=== PATIENT | male | born 1990 | race African-American/Black ===

== ENCOUNTER 2016-04-22 22:08 | Outpatient (CLI) | payer OTHER, BC | END 2016-04-22 22:09 | disposition home or self-care (01) | DX: Z01.89 Encounter for other specified special examinations (principal) ==

== ENCOUNTER 2019-02-02 16:32 | Emergency (ER) | payer BC ==
[2019-02-02] MEDS ORDERED: BUPIVACAINE 0.5% PF 10 ML VIAL SUBQ STA (18:10)
[2019-02-02] MEDS ORDERED: BUFFERED LIDOCAINE 10 ML SYRINGE SUBQ STA (18:10)
[2019-02-02] MEDS ORDERED: TETANUS/DIPHTHERIA/PERTUSSIS 0.5 ML SYRINGE IM ONE (18:10)
--- NOTE | 2019-02-02 18:11 | ED Physician Documentation ---
PD HPI UPPER EXT INJURY - Stated complaint Stated Complaint: RT RING FINGER INJURY - Chief complaint Chief Complaint: Ext Problem - History obtained from History obtained from: Patient (This is a right-handed gentleman with unknown tetanus status who got his finger caught while closing the garage door earlier today at home. He has a laceration on the right 4th finger with moderate pain. No other injuries.) Review of Systems Constitutional: reports: Reviewed and negative Cardiac: reports: Reviewed and negative Respiratory: reports: Reviewed and negative PD PAST MEDICAL HISTORY - Past Medical History Past Medical History: No Cardiovascular: None Respiratory: Asthma Neuro: None Endocrine/Autoimmune: None GI: None : None HEENT: None Psych: None Musculoskeletal: Chronic back pain Derm: None - Past Surgical History Past Surgical History: Yes - Present Medications Home Medications: Ambulatory Orders Medication Instructions Recorded Confirmed Albuterol Sulfate [Albuterol 1 gm INH Q4HR PRN 05/01/14 06/05/14 Sulfate Hfa] Ondansetron [Zofran] 4 mg PO Q6H PRN #10 tablet 06/05/14 Hydrocodone/Acetaminophen 1 - 2 each PO Q6H PRN #14 tablet 02/02/19 [Hydrocodon-Acetaminophen 5-325] - Allergies Allergies/Adverse Reactions: Allergies Allergy/AdvReac Type Severity Reaction Status Date / Time No Known Drug Allergies Allergy Verified 02/02/19 16:39 - Social History Does the pt smoke?: Yes Smoking Status: Current every day smoker Does the pt drink ETOH?: Yes Does the pt have substance abuse?: No - Immunizations Immunizations are current?: No Immunizations: TDAP >10years/unknown - POLST Patient has POLST: No PD ED PE NORMAL - Vitals Vital signs reviewed: Yes - General General: Alert and oriented X 3, No acute distress - Extremities Extremities: Other (There is a 2 cm laceration and subcutaneous fat on the palmar surface of the distal phalanx of the right fourth finger, just distal to the DIP with intact flexor tendon strength and neurovascular status at the tip.) - Neuro Neuro: Alert and oriented X 3, Normal speech Results - Vitals Vitals: Vital Signs - 24 hr 02/02/19 16:36 Temperature 37 C Heart Rate 74 Respiratory 20 Rate Blood Pressure 129/78 O2 Saturation 100 Oxygen O2 Source Room air Procedures - Laceration (location) R 4th finger Length in cm: 2 Wound type: Curved, Into subcut fat Neurovascular status: Sensory intact, Motor intact Tendon involvement: Tendon intact Anesthesia: Lidocaine 1%, Marcaine 0.5%, With bicarb Wound Preparation: Irrigated copiously NS Skin layer closure: Nylon, Interrupted, Size #-0 - enter number (4-0), Sutures - enter # (7) Other: Tetanus booster given Complexity: Simple Departure - Departure Disposition: 01 Home, Self Care Clinical Impression: Finger laceration Qualifiers: Encounter type: initial encounter Finger: ring finger Damage to nail status: without damage Foreign body presence: without foreign body Laterality: right Qualified Code(s): S61.214A - Laceration without foreign body of right ring finger without damage to nail, initial encounter Condition: Good Record reviewed to determine appropriate education?: Yes Instructions: ED Laceration Hand Prescriptions: Hydrocodone/Acetaminophen [Hydrocodon-Acetaminophen 5-325] 1 - 2 each PO Q6H PRN #14 tablet PRN Reason: pain Comments: Come back for any signs of infection which would include: Redness, swelling, drainage, increased pain, or fevers. You can wash it soap and water. Keep it covered and moist with bacitracin ointment which is available over the counter; avoid neosporin. Follow-up with your physician in 14 days for suture removal. Forms: Activity restrictions
[2019-02-02 19:02] VITALS: BP 144/93
--- NOTE | 2019-02-02 19:09 | XRAY Report ---
Reason: R 4th finger inj Procedure Date: 02/02/2019 Accession Number: [id number] / [id number] Procedure: XR - Finger(s) RT CPT Code: Final Report FULL RESULT: EXAM: RIGHT FOURTH DIGIT RADIOGRAPHY EXAM DATE: 02/02/2019 06:29 PM. CLINICAL HISTORY: R 4th finger inj. Finger caught in garage door joint. COMPARISON: XR HAND MIN 3 VIEWS 10/30/2008 11:50 PM. TECHNIQUE: 3 views. FINDINGS: Bones: Normal. No fracture or bone lesion. Joints: Normal. No subluxations. Soft Tissues: Mild soft tissue irregularity at the radial volar aspect of the fourth DIP joint. No radiopaque foreign body. IMPRESSION: No fracture or malalignment. [facility]
== END 2019-02-02 19:13 | disposition home or self-care (01) ==
LOC: ED 16:32
DX: S61.214A Laceration without foreign body of right ring finger without damage to nail, initial encounter (principal); W23.0XXA Caught, crushed, jammed, or pinched between moving objects, initial encounter; Y92.008 Other place in unspecified non-institutional (private) residence as the place of occurrence of the external cause; F17.200 Nicotine dependence, unspecified, uncomplicated; Z23 Encounter for immunization
CPT/HCPCS: 12001; 73140; 90471

== ENCOUNTER 2019-09-19 04:53 | Outpatient (CLI) | payer SELFPAY | END 2019-09-19 04:54 | disposition E | LOC: EMS 04:53 | PROVIDERS: ATTEND Surgery | DX: V49.40XA Driver injured in collision with unspecified motor vehicles in traffic accident, initial encounter; Y92.413 State road as the place of occurrence of the external cause ==